=== PATIENT | male | born 1990 | race American Indian/Alaskan Native ===

== ENCOUNTER 2021-11-13 18:06 | Emergency (ER) | payer SELFPAY ==
[2021-11-13 18:27] LABS: Hematocrit 41.9 % (35.5-45.6); Hemoglobin 13.9 gm/dl (11.8-15.2); Mean Corpuscular HGB Conc 33 % (32-34); Mean Corpuscular Volume 85 fl (84-94); Platelet Count 230 K/mm3 (140-440); Red Blood Count 4.91 M/mm3 (3.65-5.03)
[2021-11-13 18:40] LABS: BUN/Creatinine Ratio 9; Blood Urea Nitrogen 10 mg/dL (9-20); Hemolysis Index 8
[2021-11-13 19:00] LABS: Basophils % (Manual) 0 % (0.0-1.8); RBC Morphology Normal; Total Cells Counted 100
[2021-11-13 19:01] LABS: Large Platelets Few; Platelet Estimate Consistent w Auto
--- NOTE | 2021-11-13 19:15 | Emergency Department Report ---
ED Psych HPI - General Stated Complaint: SI Time Seen by Provider: 11/13/21 18:10 Source: patient Mode of arrival: Ambulatory Limitations: No Limitations - History of Present Illness MD Complaint: suicidal ideation, feels depressed -: week(s) Associated Psychiatric Symptoms: depression, suicidal ideation Quality: constant Improves With: none Worsens With: none Treatments Prior to Arrival: none - Related Data Previous Rx's Medication Instructions Recorded Last Taken Type OLANzapine [ZyPREXA] 5 mg PO QHS 30 Days #30 11/15/21 Unknown Rx traZODone [Desyrel] 50 mg PO QHS 30 Days #30 tab 11/15/21 Unknown Rx Allergies Allergy/AdvReac Type Severity Reaction Status Date / Time No Known Allergies Allergy Unverified 11/14/21 08:45 ED Review of Systems ROS: Stated complaint: SI Other details as noted in HPI Constitutional: denies: chills, fever Eyes: denies: eye pain, eye discharge, vision change ENT: denies: ear pain, throat pain Respiratory: denies: cough, shortness of breath, wheezing Cardiovascular: denies: chest pain, palpitations Endocrine: no symptoms reported Gastrointestinal: denies: abdominal pain, nausea, diarrhea Genitourinary: denies: urgency, dysuria Musculoskeletal: denies: back pain, joint swelling, arthralgia Skin: denies: rash, lesions Neurological: denies: headache, weakness, paresthesias Psychiatric: denies: anxiety, depression Hematological/Lymphatic: denies: easy bleeding, easy bruising ED Past Medical Hx - Past Medical History Previous Medical History?: No - Medications Home Medications: Home Medications Medication Instructions Recorded Confirmed Last Taken Type OLANzapine [ZyPREXA] 5 mg PO QHS 30 Days #30 11/15/21 Unknown Rx traZODone [Desyrel] 50 mg PO QHS 30 Days #30 tab 11/15/21 Unknown Rx ED Physical Exam - General General appearance: alert, anxious - Head Head exam: Present: atraumatic, normocephalic - Eye Eye exam: Present: normal appearance - ENT ENT exam: Present: mucous membranes moist - Neck Neck exam: Present: normal inspection - Respiratory Respiratory exam: Present: normal lung sounds bilaterally. Absent: respiratory distress - Cardiovascular Cardiovascular Exam: Present: regular rate, normal rhythm. Absent: systolic murmur, diastolic murmur, rubs, gallop - GI/Abdominal GI/Abdominal exam: Present: soft, normal bowel sounds - Rectal Rectal exam: Present: deferred - Extremities Exam Extremities exam: Present: normal inspection - Back Exam Back exam: Present: normal inspection - Neurological Exam Neurological exam: Present: alert, oriented X3 - Psychiatric Psychiatric exam: Present: depressed, suicidal ideation - Skin Skin exam: Present: warm, dry, intact, normal color. Absent: rash ED Course Vital Signs 11/13/21 11/13/21 11/15/21 22:47 22:49 04:19 Temperature 98.3 F Pulse Rate 92 H Respiratory 16 16 Rate Blood Pressure 135/89 [Right] O2 Sat by Pulse 99 99 98 Oximetry 11/15/21 11/15/21 10:41 12:53 Temperature 97.9 F 97.9 F Pulse Rate 60 66 Respiratory 18 18 Rate Blood Pressure 122/89 122/89 [Right] O2 Sat by Pulse 98 98 Oximetry ED Medical Decision Making - Lab Data Result diagrams: 11/13/21 18:12 11/13/21 18:12 Critical care attestation.: If time is entered above; I have spent that time in minutes in the direct care of this critically ill patient, excluding procedure time. ED Disposition Clinical Impression: Suicidal ideation, Bipolar disorder, Schizophrenia Disposition: HOME / SELF CARE / HOMELESS Is pt being admited?: No Does the pt Need Aspirin: No Condition: Stable Instructions: Managing Bipolar Disorder, Suicidal Feelings: How to Help Yourself, Schizophrenia Additional Instructions: Professional and Agency Contacts To help [facility](07/01) [place] Crisis Line: Suicide Prevention Line: Crisis Text Line: Text START to [phone] Emergency: 911 Outpatient COMMUNITY Behavioral Health Resources: [place]: [facility] [address] [place], [place] [address] [place]: [address] [address] [place]: [facility] - [address] [place] [address] Saturday thru Saturday - 8am - 5pm [place]: [facility] Address: [address], [place] [address] [facility] Address: [address], [place], [place] Saturday thru Saturday- 7am-2pm [facility] Address: [address], [place] [address] Saturday thru Saturday: 8:30AM-5PM Prescriptions: traZODone [Desyrel] 50 mg PO QHS 30 Days #30 tab OLANzapine [ZyPREXA] 5 mg PO QHS 30 Days #30 Referrals: PRIMARY CARE, [Primary Care Provider] - 3-5 Days
[2021-11-14] MEDS ORDERED: ZIPRASIDONE MESYLATE 20 MG VIAL IM ONE (08:46)
--- NOTE | 2021-11-14 11:22 | Consultation ---
History of Present Illness - Reason for Consult Consult date: 11/14/21 Reason for consult: Mental health evaluation - History of Present Psychiatric Illness The patient is a 31 year old male with history of schizophrenia and bipolar. The patient was seen this morning, he is easily agitated, and paranoid unable to give details of why he came to the ED. He states " they keep asking these questions." He states " it looks like I'm seeing certain things throughout the day. Geodon 20mg IM was ordered due to increasing agitation. PAST PSYCHIATRIC HISTORY: PAST MEDICAL HISTORY: None reported or document Family Psychiatric History: None reported or documented SOCIAL HISTORY REVIEW OF SYSTEMS MENTAL STATUS EXAMINATION Diagnoses: Schizohrenia Treatment Plan 1013 Continue home meds Zyprexa 5mg po BID Trazodone 50mg po QHS PSYCHOTHERAPY: Supportive psychotherapy provided MEDICAL: Per primary team DELIRIUM PRECAUTIONS: Please re-orient patient frequently, keep lights on during the day, and minimize benzodiazepines and opiates as these medications could wor sen patient's confusion. [employer]: Per medical team DISPOSITION: Do not recommend acute psychiatric inpatient treatment. Will follow. Thank you for the consult. Case staffed with Dr. Márquez Medications and Allergies Medications and Allergies Allergies Allergy/AdvReac Type Severity Reaction Status Date / Time No Known Allergies Allergy Unverified 11/14/21 08:45 Mental Status Exam - Vital signs Last Vital Signs Temp 98.3 F 11/13/21 22:49 Pulse 92 H 11/13/21 22:49 Resp 16 11/13/21 22:49 BP 135/89 11/13/21 22:49 Pulse Ox 99 11/13/21 22:49 Results Result Diagrams: 11/13/21 18:12 11/13/21 18:12 Abnormal lab results 11/13/21 11/13/21 11/13/21 Range/Units 18:12 18:12 18:12 Seg Neuts % (Manual) 28.0 L (40.0-70.0) % Lymphocytes % (Manual) 62.0 H (13.4-35.0) % Monocytes % (Manual) 9.0 H (0.0-7.3) % Salicylates < 0.3 L (2.8-20.0) mg/dL Acetaminophen 5.0 L (10.0-30.0) ug/mL All other labs normal.
--- NOTE | 2021-11-14 12:21 | Event Note ---
31-year-old male with schizophrenia currently on 1013 for psychosis and suicidal ideation. Requiring IM antipsychotics. Urine collection still pending. Awaiting placement
[2021-11-14] MEDS ORDERED: traZODone 50 MG TAB PO SCH (22:00)
[2021-11-15 10:43] VITALS: BP 122/89
--- NOTE | 2021-11-15 10:57 | Progress Note ---
Subjective - Reason for Consult Consult date: 11/15/21 Reason for consult: mental health evaluation - Chief Complaint Chief complaint: The patient was seen this morning. He reports feeling better. He presents with appropriate affect. The patient denies any current suicidal/homicidal ideation and denies hallucinations. REVIEW OF SYSTEMS Constitutional: Negative for weight loss ENT: Negative for stridor Respiratory: Negative for cough or hemoptysis All other systems reviewed and are negative MENTAL STATUS EXAMINATION General Appearance and Behavior: Age appropriate, wearing appropriate clothes, cooperative, polite with questioning, good eye contact, calm, polite Cooperation: cooperative Psychomotor Behavior: Psychomotor normal Mood:CALM Affect and affective range: Congruent with stated mood Thought Process: Goal directed Thought Content:Reality oriented Speech: Normal volume, Regular rate and rhythm Suicidal Ideation: Denies Homicidal Ideation: Denies Hallucination:Denies Delusions: None Impulse Control: limited Insight and Judgment: Limited Insight and judgment Memory: intact Attention: attentive Orientation: Alert and oriented Diagnoses: Bipolar HX of Schizophrenia Treatment Plan DC 1013 Continue home meds Continue Zyprexa 5mg po QHS Continue Trazodone 50mg po QHS PSYCHOTHERAPY: Supportive psychotherapy provided MEDICAL: Per primary team DELIRIUM PRECAUTIONS: Please re-orient patient frequently, keep lights on during the day, and minimize benzodiazepines and opiates as these medications could worsen patient's confusion. [employer]CHNICIAN: Per medical team DISPOSITION: Do not recommend acute psychiatric inpatient treatment. [facility] will provide patient with outpatient resources. Will sign off. Thank you for the consult. Case staffed with Dr. Márquez Medications and Allergies Mental Status Exam - Vital signs Last Vital Signs Temp 97.9 F 11/15/21 10:41 Pulse 60 11/15/21 10:41 Resp 18 11/15/21 10:41 BP 122/89 11/15/21 10:41 Pulse Ox 98 11/15/21 10:41
--- NOTE | 2021-11-15 12:09 | Event Note ---
Chart and vital signs reviewed 31-year-old male who has been cleared for psych for discharge with home psychiatric meds
== END 2021-11-15 12:53 | disposition home or self-care (01) ==
LOC: EEVIPCON 18:06 → ED 18:06
DX: R45.851 Suicidal ideations (principal); F31.9 Bipolar disorder, unspecified; Z20.822 Contact with and (suspected) exposure to COVID-19; F20.9 Schizophrenia, unspecified; Z79.899 Other long term (current) drug therapy
CPT/HCPCS: 36415; 80048; 85007; 85025; 99284; U0003; 80320; G0480

== ENCOUNTER 2022-01-24 12:04 | Emergency (ER) | payer SELFPAY ==
[2022-01-24 21:25] LABS: Basophils # (Auto) 0.1 K/mm3 (0.0-0.1); Basophils % (Auto) 0.8 % (0.0-1.8); Eosinophils # (Auto) 0.3 K/mm3 (0.0-0.4); Eosinophils % (Auto) 3.9 % (0.0-4.3); Hematocrit 39.2 % (35.5-45.6); Hemoglobin 12.9 gm/dl (11.8-15.2); Lymphocytes # (Auto) 2.9 K/mm3 (1.2-5.4); Mean Corpuscular HGB Conc 33 % (32-34); Mean Corpuscular Volume 85 fl (84-94); Monocytes # (Auto) 0.6 K/mm3 (0.0-0.8); Monocytes % (Auto) 7.8 % (0.0-7.3); Platelet Count 213 K/mm3 (140-440); Red Cell Distribution Width 14.2 % (13.2-15.2)
--- NOTE | 2022-01-24 21:28 | XRay Report ---
CHEST 1 VIEW 01/24/2022 9:11 PM INDICATION / CLINICAL INFORMATION: SYNCOPE. COMPARISON: None available. FINDINGS: SUPPORT DEVICES: None. HEART / MEDIASTINUM: No significant abnormality. LUNGS / PLEURA: No significant pulmonary or pleural abnormality. No pneumothorax. ADDITIONAL FINDINGS: No significant additional findings. IMPRESSION: 1. No acute findings. Signer Name: Christian De Leon MD Signed: 01/24/2022 9:24 PM Workstation Name: [id number]
[2022-01-24 21:40] LABS: Alanine Aminotransferase 7 units/L (7-56); Albumin 4.5 g/dL (3.9-5); BUN/Creatinine Ratio 10; Blood Urea Nitrogen 9 mg/dL (9-20); Calcium 9.1 mg/dL (8.4-10.2); Hemolysis Index 7
--- NOTE | 2022-01-25 00:22 | Emergency Department Report ---
ED General Adult HPI - General Chief complaint: Syncope Stated complaint: SYNCOPE EPISODE/WEAKNESS Source: patient, EMS Mode of arrival: Stretcher Limitations: No Limitations - History of Present Illness MD Complaint: Syncope after smoking marijuana -: hour(s) (8) Location: head Radiation: non-radiation Quality: dull Consistency: intermittent Improves with: none Worsens with: none Associated Symptoms: denies: denies other symptoms, confusion, chest pain, cough, diaphoresis, fever/chills, headaches, malaise, nausea/vomiting, rash, seizure, shortness of breath, syncope, weakness Treatments Prior to Arrival: none - Related Data Previous Rx's Medication Instructions Recorded Last Taken Type OLANzapine [ZyPREXA] 5 mg PO QHS 30 Days #30 11/15/21 Unknown Rx traZODone [Desyrel] 50 mg PO QHS 30 Days #30 tab 11/15/21 Unknown Rx hydrOXYzine PAMOATE [Vistaril] 25 mg PO Q6HR PRN #30 capsule 01/25/22 Unknown Rx Allergies Allergy/AdvReac Type Severity Reaction Status Date / Time No Known Allergies Allergy Verified 01/24/22 12:15 ED Review of Systems ROS: Stated complaint: SYNCOPE EPISODE/WEAKNESS Other details as noted in HPI Constitutional: denies: chills, fever Eyes: denies: eye pain, eye discharge, vision change ENT: denies: ear pain, throat pain Respiratory: denies: cough, shortness of breath, wheezing Cardiovascular: syncope. denies: chest pain, palpitations Endocrine: no symptoms reported Gastrointestinal: denies: abdominal pain, nausea, diarrhea Genitourinary: denies: urgency, dysuria Musculoskeletal: denies: back pain, joint swelling, arthralgia Skin: denies: rash, lesions Neurological: denies: headache, weakness, paresthesias Psychiatric: denies: anxiety, depression Hematological/Lymphatic: denies: easy bleeding, easy bruising ED Past Medical Hx - Medications Home Medications: Home Medications Medication Instructions Recorded Confirmed Last Taken Type OLANzapine [ZyPREXA] 5 mg PO QHS 30 Days #30 11/15/21 Unknown Rx traZODone [Desyrel] 50 mg PO QHS 30 Days #30 tab 11/15/21 Unknown Rx hydrOXYzine PAMOATE [Vistaril] 25 mg PO Q6HR PRN #30 capsule 01/25/22 Unknown Rx ED Physical Exam - General Limitations: No Limitations General appearance: alert, in no apparent distress - Head Head exam: Present: atraumatic, normocephalic, normal inspection - Eye Eye exam: Present: normal appearance, PERRL, EOMI Pupils: Present: normal accommodation - ENT ENT exam: Present: normal exam, normal orophraynx, mucous membranes moist, TM's normal bilaterally, normal external ear exam - Neck Neck exam: Present: normal inspection, full ROM. Absent: tenderness - Respiratory Respiratory exam: Present: normal lung sounds bilaterally. Absent: respiratory distress, wheezes, rales, rhonchi, chest wall tenderness, accessory muscle use, decreased breath sounds, prolonged expiratory - Cardiovascular Cardiovascular Exam: Present: regular rate, normal rhythm, normal heart sounds. Absent: systolic murmur, diastolic murmur, rubs, gallop - GI/Abdominal GI/Abdominal exam: Present: soft, normal bowel sounds. Absent: tenderness, guarding, rebound, hyperactive bowel sounds, hypoactive bowel sounds, organomegaly, mass, bruit - Extremities Exam Extremities exam: Present: normal inspection, full ROM, normal capillary refill. Absent: tenderness, pedal edema, joint swelling, calf tenderness - Back Exam Back exam: Present: normal inspection, full ROM. Absent: tenderness, CVA tenderness (R), CVA tenderness (L), muscle spasm, paraspinal tenderness, vertebral tenderness - Neurological Exam Neurological exam: Present: alert, oriented X3, CN II-XII intact, normal gait, reflexes normal - Psychiatric Psychiatric exam: Present: normal affect, normal mood - Skin Skin exam: Present: warm, dry, intact, normal color. Absent: rash, cyanosis, diaphoretic, urticaria, petechiae, pallor, ecchymosis ED Course Vital Signs 01/24/22 12:13 Pulse Rate 96 H Respiratory 18 Rate Blood Pressure 130/80 [Left] O2 Sat by Pulse 99 Oximetry ED Medical Decision Making - Lab Data Result diagrams: 01/24/22 21:05 01/24/22 21:05 - Radiology Data Radiology results: report reviewed, image reviewed [facility] [address] [place] [address] XRay Report Signed Patient: KARLOS MADRIGAL MR#: [id number] 57 : 1990 Acct:[id number] Age/Sex: 31 / M ADM Date: 01/24/22 Loc: ED Attending Dr: Ordering Physician: TORRES MEJIA Date of Service: 01/24/22 Procedure(s): XR chest 1V ap Accession Number(s): [id number] cc: TORRES MEJIA Fluoro Time In Minutes: CHEST 1 VIEW 01/24/2022 9:11 PM INDICATION / CLINICAL INFORMATION: SYNCOPE. COMPARISON: None available. FINDINGS: SUPPORT DEVICES: None. HEART / MEDIASTINUM: No significant abnormality. LUNGS / PLEURA: No significant pulmonary or pleural abnormality. No pneumothorax. ADDITIONAL FINDINGS: No significant additional findings. IMPRESSION: 1. No acute findings. Signer Name: Christian De Leon MD Signed: 01/24/2022 9:24 PM Workstation Name: [id number] Transcribed By: SS Dictated By: Christian De Leon MD Electronically Authenticated By: Christian De Leon MD Signed Date/Time: 01/24/222123 DD/ 23 TD/TT: - Differential Diagnosis syncope, anxiety; marijuana abuse Critical care attestation.: If time is entered above; I have spent that time in minutes in the direct care of this critically ill patient, excluding procedure time. ED Disposition Clinical Impression: Vasovagal syncope, Marijuana smoker, continuous, Anxiety as acute reaction to exceptional stress Disposition: 01 HOME / SELF CARE / HOMELESS Is pt being admited?: No Does the pt Need Aspirin: No Condition: Stable Instructions: Syncope (ED), Near-Syncope, [id number], Cannabis Use Disorder, Syncope, [id number] Additional Instructions: All lab test results were reviewed and are all nonactionable. Chest x-ray showed no acute cardiopulmonary abnormalities or pneumonitis. Therefore consider quitting to be cannabis abuse to help with your symptoms. Follow-up with your primary care physician in 7 to 10 days for reevaluation or return to the ED immediately if symptoms get worse. Prescriptions: hydrOXYzine PAMOATE [Vistaril] 25 mg PO Q6HR PRN #30 capsule PRN Reason: Anxiety Referrals: LOTTIE TOM MD [Primary Care Provider] - 7-10 days Time of Disposition: 00:21 Print Language: YAKUT
[2022-01-25 00:48] VITALS: BP 136/82
--- NOTE | 2022-01-26 08:51 | Electrocardiograph Report ---
[facility] Test Date: 2022-01-24 Test Time: 23:07:35 Pat Name: KARLOS MADRIGAL Department: Room: Gender: M Allergist/Immunologist: SHAHLA : 1990 Requested By: RUKHSANA SOLIS Order Number: [id number] Reading MD: Aristeo Rosas Measurements Intervals [place] Rate: 55 P: 3 MT: 146 QRS: 70 QRSD: 90 T: 33 QT: 402 QTc: 386 Interpretive Statements Sinus rhythm No previous ECG available for comparison Electronically Signed On 01-26-2022 8:51:05 EDT by Aristeo Rosas
== END 2022-01-25 00:48 | disposition home or self-care (01) ==
LOC: ED 12:04
DX: R55 Syncope and collapse (principal); F12.90 Cannabis use, unspecified, uncomplicated; F41.9 Anxiety disorder, unspecified
CPT/HCPCS: 36415; 71045; 80053; 84484; 85025; 93005; 99284